=== PATIENT | female | born 1990 | race Caucasian/White ===

== ENCOUNTER 2016-08-29 10:29 | Emergency (ER) | payer BC ==
[~2016-08-29] VITALS: Ht 165.1 cm; Wt 67.6 kg
[2016-08-29] MEDS ORDERED: FIORICET,ESG1 TABLET PO (13:12)
[2016-08-29 13:24] VITALS: BP 121/72
== END 2016-08-29 13:34 | disposition home or self-care (01) ==
LOC: EME 10:29
DX: R51 Headache (principal); M54.2 Cervicalgia; H53.149 Visual discomfort, unspecified
CPT/HCPCS: 70450; 84702; 84703; 99281; 99284; J0780; J7030